=== PATIENT | female | born 1970 | race Caucasian/White ===

== ENCOUNTER → 2018-02-26 | Outpatient (CLI) | payer BC | END | disposition home or self-care (01) | LOC: LAB SHORT 13:14 → LAB 13:14 | PROVIDERS: Obstetrics & Gynecology | DX: Z12.4 Encounter for screening for malignant neoplasm of cervix (principal) | CPT/HCPCS: 87624; G0123 ==

== ENCOUNTER 2020-09-15 08:44 | Day surgery (SDC) | payer OTHER ==
--- NOTE | 2020-09-15 09:17 | NUR ---
Ambulatory in Day Surgery History, Chart, Medications and Allergies reviewed before start of procedure. Lungs clear T/O to Auscultation. Pre-Op teaching done. Pt verbalizes understanding.
--- NOTE | 2020-09-15 10:31 | NUR ---
Discharge instructions reviewed with patient. Patient verbalizes understanding. Copy given to patient to take home. Patient discharge to home.
[2020-12-20] MEDS ORDERED: AMLO10 PO (14:53)
== END 2020-09-15 23:30 | disposition home or self-care (01) ==
LOC: ORD 08:44 → CT 08:44 → ORD 09:30 → CT 10:00 → ORD 23:30
DX: R07.9 Chest pain, unspecified (principal); L40.50 Arthropathic psoriasis, unspecified; F33.9 Major depressive disorder, recurrent, unspecified; I15.9 Secondary hypertension, unspecified; F43.12 Post-traumatic stress disorder, chronic
CPT/HCPCS: 75574; Q9967

== ENCOUNTER 2020-12-21 08:18 | Day surgery (SDC) | payer OTHER ==
[~2020-12-21] VITALS: Ht 162.6 cm; Wt 80.9 kg
[~2020-12-21 08:18] MED LIST: AMLO10 PO
--- NOTE | 2020-12-21 09:39 | NUR ---
Ambulatory in Day Surgery Patient states colon prep results clear. History, Chart, Medications and Allergies reviewed before start of procedure. Lungs clear T/O to Auscultation. Pre-Op teaching done. Pt verbalizes understanding.
--- NOTE | 2020-12-21 10:26 | NUR ---
12/21/20 1026 Laura Cowart History, Chart, Medications and Allergies reviewed before start of procedure. Patient confirms NPO status and agrees with scheduled surgery. PATIENT DETERMINED TO BE ASA APPROPRIATE FOR PROPOFOL SEDATION PRIOR TO START OF PROCEDURE BY . 3-LEAD EKG REVIEWED WITH PHYSICIAN PRIOR TO START OF PROCEDURE. MONITOR INTACT WITH CONTINUOUS PULSE OXIMETRY AND INTERMITTENT BP. SUPPLEMENTAL O2 TO BE TITRATED THROUGHOUT PROCEDURE TO MAINTAIN O2 SATURATION ABOVE 90%.
--- NOTE | 2020-12-21 11:19 | NUR ---
Patient up to Ambulate independently. Gait steady. Discharge instructions reviewed with patient. Patient verbalizes understanding. Copy given to patient to take home. Discharged via wheelchair to private car for ride home WITH BOYFRIEND
== END 2020-12-21 11:19 | disposition home or self-care (01) ==
LOC: ORSCMMR 08:18 → ORD 09:30 → ORSCMMR 11:19
PROVIDERS: Internal Medicine Gastroenterology
PROC: 0DBN8ZX Excision of Sigmoid Colon, Via Natural or Artificial Opening Endoscopic, Diagnostic (ICD-10-PCS; principal; 2020-12-21 09:30)
PROC: 0DBH8ZX Excision of Cecum, Via Natural or Artificial Opening Endoscopic, Diagnostic (ICD-10-PCS; principal; 2020-12-21 09:30)
DX: R19.5 Other fecal abnormalities (principal); D12.0 Benign neoplasm of cecum; K63.5 Polyp of colon; F41.9 Anxiety disorder, unspecified; I10 Essential (primary) hypertension; Z79.899 Other long term (current) drug therapy
CPT/HCPCS: 88305; J2704; J7120

== ENCOUNTER 2022-01-07 11:43 | Emergency (ER) | payer OTHER ==
[~2022-01-07] VITALS: Ht 162.6 cm; Wt 90.7 kg
[2022-01-07 12:32] LABS: Source, Urine Foley catheter
[2022-01-07 12:54] LABS: Appearance, Urine Hazy (Clear); Bilirubin, Urine Neg (Neg); Blood, Urine 5+ (Neg); Color, Urine Yellow (P-Yellow); Glucose Qualitative, Urine Neg (Neg); Ketones, Urine Neg (Neg); Leukocyte Esterase, Urine 2+ (Neg); Nitrite, Urine Neg (Neg); Protein, Urine 2+ (Neg); Urobilinogen, Urine 1+ (Normal)
[2022-01-07 13:00] LABS: Bacteria Mod /hpf; Red Blood Cells, Urine TNTC /hpf (0-2); Squamous Epithelial Cells Few /hpf (Few)
[2022-01-07] MEDS ORDERED: CEFD300 PO (13:07)
== END 2022-01-07 13:20 | disposition home or self-care (01) ==
LOC: ER 11:43
PROVIDERS: Physician Assistant
DX: N39.0 Urinary tract infection, site not specified (principal); T83.9XXA Unspecified complication of genitourinary prosthetic device, implant and graft, initial encounter; I10 Essential (primary) hypertension; Y82.9 Unspecified medical devices associated with adverse incidents; Z79.899 Other long term (current) drug therapy; Z88.8 Allergy status to other drugs, medicaments and biological substances; Z98.890 Other specified postprocedural states
CPT/HCPCS: 81001; A9270

== ENCOUNTER → 2022-05-22 | Outpatient (CLI) | payer OTHER ==
[~2022-05-22] MED LIST changes: +CEFD300 PO
== END ==
LOC: LAB 12:50 → LAB SHORT 12:50
DX: M79.642 Pain in left hand (principal)
CPT/HCPCS: 84550

== ENCOUNTER → 2023-04-05 | Outpatient (CLI) | payer OTHER ==
[2023-04-09 16:07] LABS: HPV 16 Negative (Negative); HPV 18 Negative (Negative); HPV OTHER HR TYPES Negative (Negative)
== END ==
LOC: LAB 15:23 → LAB SHORT 15:23
PROVIDERS: Family Medicine
DX: Z12.4 Encounter for screening for malignant neoplasm of cervix (principal)
CPT/HCPCS: 87624; G0145

== ENCOUNTER 2023-08-19 09:41 | Emergency (ER) | payer OTHER ==
[~2023-08-19] VITALS: Ht 162.6 cm; Wt 104.3 kg
[2023-08-19 10:24] VITALS: BP 143/74
[2023-08-19 11:18] LABS: Influenza A, PCR NEGATIVE (NEGATIVE); Influenza B, PCR NEGATIVE (NEGATIVE); Resp Syncytial Virus, PCR NEGATIVE (NEGATIVE); SARS-Cov-2 (COVID-19) PCR, MMC NEGATIVE (NEGATIVE)
[2023-08-19] MEDS ORDERED: ONDA4ODT MM (11:49)
== END 2023-08-19 11:58 | disposition home or self-care (01) ==
LOC: ER 09:41
PROVIDERS: Student in an Organized Health Care Education/Training Program
DX: J06.9 Acute upper respiratory infection, unspecified (principal); B97.89 Other viral agents as the cause of diseases classified elsewhere; I10 Essential (primary) hypertension; Z79.899 Other long term (current) drug therapy; Z88.8 Allergy status to other drugs, medicaments and biological substances
CPT/HCPCS: 0241U; 71046; 96372; 99284-25; A9270; J1885

== ENCOUNTER → 2024-04-28 | Outpatient (CLI) | payer MEDICARE, OTHER ==
[~2024-04-28] MED LIST changes: +BUSP10 PO; +Budeprion Xl300 MG PO; +FURO40 PO; +ONDA4ODT MM; +POTA10T PO; +PREG200; +VALS80 PO; +VITAMIN D5000 UNIT PO
[2024-04-28 18:51] LABS: Calcium, Blood 9.5 mg/dL (8.5-10.1); Creatinine, Blood 1.1 mg/dL (0.40-1.00); Potassium, Blood 3.4 mmol/L (3.5-5.5)
== END | disposition home or self-care (01) ==
LOC: LAB SHORT 17:47 → LAB 17:47
PROVIDERS: Physician Assistant
DX: I51.9 Heart disease, unspecified (principal)
CPT/HCPCS: 80048

== ENCOUNTER 2024-05-06 08:38 | Day surgery (SDC) | payer MEDICARE, OTHER ==
[~2024-05-06] VITALS: Ht 165.1 cm; Wt 109.6 kg
[~2024-05-06 08:38] MED LIST changes: +Ropivacaine 0.5% HCL/PF 5 MG/ML 30ML Vial ONE
[2024-05-06] MEDS ORDERED: CeFAZolin Sodium 2,000 MG VIAL ONE (08:56)
[2024-05-06] MEDS ORDERED: NS 50 ML IV ONE (08:57)
[2024-05-06] MEDS ORDERED: Lactated Ringer's 1,000 ML IV ONE ×3 (08:57→11:05)
[2024-05-06] MEDS ORDERED: propofoL 20 ML IV ONE (09:25)
[2024-05-06] MEDS ORDERED: FentaNYL Citrate 50 MCG/ML 2 ML Injection ONE (09:25)
[2024-05-06] MEDS ORDERED: Midazolam HCl 1MG / ML 2ML Vial ONE (10:21)
[2024-05-06] MEDS ORDERED: ePHEDrine Sulfate 50 MG/ML 1ML Injection ONE (10:37)
[2024-05-06] MEDS ORDERED: Ondansetron HCl 2 MG / ML 2ML Vial ONE (10:42)
[2024-05-06] MEDS ORDERED: Dexamethasone Sod Phos 10 MG/ML 1ML VIAL ONE (10:42)
[2024-05-06] MEDS ORDERED: EPINEPhrine HCl 1 MG/ML 1ML Amp XX ONE (10:42)
[2024-05-06] MEDS ORDERED: Albuterol 2.5 MG/3 ML VIAL ONE (11:43)
[2024-05-06 12:07] VITALS: BP 114/59
--- NOTE | 2024-05-06 17:30 | NUR ---
05/06/24 1730 Weston Scruggs LATE ENTRY: PT INITIALLY MAINTAINING O2 IN LOW 90'S AND HIGH 80'S WITH 15L O2 VIA FACE TENT IN SDU. AFTER WAKING, PT HAD FREQUENT COUGHING SPELLS AND WHEEZES WERE ASCULTATED IN LUNGS. ALBUTEROL WAS PULLED FROM PYXIS BUT WHEEZES AND COUGHING RESOLVED BEFORE IT COULD BE GIVEN. O2 BEGAN MAINTAINING >92% AND WHEEZES/COUGHING RESOLVED PRIOR TO TRANSFER TO SDU.
== END 2024-05-06 12:53 | disposition home or self-care (01) ==
LOC: ORSCSDS 08:38
PROVIDERS: Orthopaedic Surgery
PROC: 0QP104Z Removal of Internal Fixation Device from Sacrum, Open Approach (ICD-10-PCS; principal; 2024-05-06 10:40)
DX: T84.9XXA Unspecified complication of internal orthopedic prosthetic device, implant and graft, initial encounter (principal); I10 Essential (primary) hypertension; F41.9 Anxiety disorder, unspecified; F43.10 Post-traumatic stress disorder, unspecified; E66.01 Morbid (severe) obesity due to excess calories; Z68.41 Body mass index [BMI] 40.0-44.9, adult; Z79.899 Other long term (current) drug therapy
CPT/HCPCS: J0171; J0690; J1100; J2250; J2405; J2704; J2795; J3010; J7120